=== PATIENT | male | born 1950 | race Caucasian/White ===

== ENCOUNTER 2016-09-27 10:04 | Emergency (ER) | payer MEDICARE, OTHER ==
[~2016-09-27] VITALS: Ht 177.8 cm; Wt 88.9 kg
[~2016-09-27 10:04] MED LIST: CIPR-173 PO; FOLI1TAB6 PO; FURO40TA4 PO; LISI10TA6 PO; POTA10TA34 PO
[2016-09-27 10:38] VITALS: BP 117/58
[2016-09-27] MEDS ORDERED: SILVER SULFADIAZINE 1 % TOPICAL CREAM 50GM TOP ONE (10:45)
== END 2016-09-27 10:51 | disposition home or self-care (01) ==
LOC: ER 10:04
DX: T23.222A Burn of second degree of single left finger (nail) except thumb, initial encounter (principal); E11.9 Type 2 diabetes mellitus without complications; I10 Essential (primary) hypertension; Z88.0 Allergy status to penicillin; X15.0XXA Contact with hot stove (kitchen), initial encounter; Y93.89 Activity, other specified; Y99.8 Other external cause status; Y92.89 Other specified places as the place of occurrence of the external cause
CPT/HCPCS: 16020; 82962